=== PATIENT | male | born 1970 | race Caucasian/White ===

== ENCOUNTER → 2018-07-16 | Outpatient (CLI) | payer BC ==
[~2018-07-16] MED LIST: CARV6.252 PO; CHOL500016 PO; FISH1CAP PO; L AC460C PO; MELA3TAB2 PO; PANT40GR PO; SIME250C PO; TRAZ-86 PO
--- NOTE | 2018-07-16 13:41 | RAD ---
Examination: NM HEPATOBILIARY SCAN W PHARM History: bloating post meal x 1 year 5.5mci 99mTc Choletec liquid meal for EF Comparison/Correlation: None Findings: Hepatobiliary scintigraphy was performed utilizing 5.5 mCi technetium 99m Choletec IV. Uptake appreciated by liver is normal. Radiotracer is present within small bowel at approximately 10 minutes. Radiotracer is present within the gallbladder at 20 minutes. There is no biliary dilatation. After 60 minutes, liquid meal was orally administered for ejection fraction determination. After 27.5 minutes, ejection fraction is 40 percent. Impression: Gallbladder ejection fraction of 40 percent is identified at 23 minutes. This is within normal limits. No biliary dilatation or evidence of cholecystitis. Electronically signed by: Denzel Alcantar MD (07/16/2018 1:37 PM) [facility]
== END | disposition home or self-care (01) ==
LOC: NM 07:34
PROVIDERS: ATTEND Internal Medicine Gastroenterology
DX: R14.0 Abdominal distension (gaseous) (principal)
CPT/HCPCS: 78226; 96374; 96375; A9537